=== PATIENT | female | born 1995 | race Caucasian/White ===

== ENCOUNTER 2021-04-30 19:42 | Emergency (ER) | payer OTHER, SELFPAY ==
--- NOTE | 2021-04-30 19:50 | ED.GENADULT ---
HPI - General Adult General Chief complaint: Wound/Laceration Stated complaint: tetnus shot Time Seen by Provider: 04/30/21 19:49 Source: patient and family Mode of arrival: ambulatory Limitations: no limitations History of Present Illness HPI narrative: 26-year-old female patient presents to the [facility] with complaints of a puncture wound with a needle to the right index finger. Patient states she was at an antique shop trying on some pants when there was a straight needle that was holding the tag onto the pants that punctured her PIP joint. Patient states it was bleeding. Patient states she is unsure of how clean the needle was and therefore is requesting a tetanus shot. Related Data Home Medications Medication Instructions Recorded Confirmed spironolactone 100 mg PO DAILY 04/30/21 04/30/21 Allergies Allergy/AdvReac Type Severity Reaction Status Date / Time No Known Allergies Allergy Verified 04/30/21 19:59 Review of Systems Review of Systems: CONSTITUTIONAL: Denies fever, chills, or sweats. EYES: Denies visual changes, redness, or discharge. ENT: Denies rhinorrhea, congestion, sore throat, or otalgia. CARDIOVASCULAR: Denies chest pain, palpitations, or edema. RESPIRATORY: Denies cough or dyspnea. GASTROINTESTINAL: Denies abdominal pain, nausea, vomiting, or diarrhea. GENITOURINARY: Denies dysuria or hematuria. SKIN: Denies rash or itching. Positive puncture wound to right index finger MUSCULOSKELETAL: Denies back pain, joint pain, or myalgia. NEUROLOGIC: Denies headache, numbness, or weakness. PSYCHIATRIC: Denies anxiety or depression. PMFSH Comments At the time of my signature I agree with nursing past medical history, surgical, social, and family history. There is no relevant family history pertinent to the presenting complaint. Exam Narrative: GENERAL: Well-appearing, well-nourished, and in no acute distress. HEAD: Normocephalic, atraumatic. EYES: PERRLA and EOMI. ENT: Nares clear, no rhinorrhea or epistaxis. Mucous membranes moist. NECK: Supple. No lymphadenopathy CHEST: Clear to auscultation. No respiratory distress. HEART: Regular rate and rhythm. No murmur heard. Normal peripheral pulses. ABDOMEN: Soft, nontender, nondistended, normal active bowel sounds. EXTREMITIES: Normal range of motion. No edema. SKIN: Warm, dry, no rash. Patient has some bruising noted around the PIP joints on the index finger with some swelling noted around the joint. NEURO: No focal deficits. Alert and oriented x3. Course Vital Signs Vital signs: Vital Signs Temperature 37.1 C 04/30/21 19:54 Pulse Rate 98 04/30/21 19:54 Respiratory Rate 16 04/30/21 19:54 Blood Pressure 138/63 04/30/21 19:54 Pulse Oximetry 100 04/30/21 19:54 Temperature 37.1 C 04/30/21 19:54 Pulse Rate 98 04/30/21 19:54 Respiratory Rate 16 04/30/21 19:54 Blood Pressure 138/63 04/30/21 19:54 Pulse Oximetry 100 04/30/21 19:54 Vital signs reviewed Medical Decision Making Differential Diagnosis Differential Diagnosis: Differential diagnosis: Abscess, cellulitis, hidradenitis, laceration, puncture wound. Discussed with patient that given the fact that she was punctured with an unknown needle I think that we should go ahead and update her tetanus shot today as well as put her on some antibiotics since it did puncture her in the joint area prophylactically to decrease risk of infection. Patient is in agreement with this plan of care denies any other questions or concerns. Vital Signs Vital Signs: Vital Signs Temperature 37.1 C 04/30/21 19:54 Pulse Rate 98 04/30/21 19:54 Respiratory Rate 16 04/30/21 19:54 Blood Pressure 138/63 04/30/21 19:54 Pulse Oximetry 100 04/30/21 19:54 Temperature 37.1 C 04/30/21 19:54 Pulse Rate 98 04/30/21 19:54 Respiratory Rate 16 04/30/21 19:54 Blood Pressure 138/63 04/30/21 19:54 Pulse Oximetry 100 04/30/21 19:54 Critical Care Time Critical Car
[2021-04-30 19:54] VITALS: BP 138/63; PULSE 98; RESP 16; TEMP 37.1; O2SAT 100
[2021-04-30] MEDS: TETANUS,DIPHTHERIA,AC PERTUSSIS ADULT (0.5 ML) BOOSTRIX IM (19:56)
== END 2021-04-30 20:20 | disposition home or self-care (01) ==
PROVIDERS: Emergency Provider Nurse Practitioner Family
DX: S61.230A Puncture wound without foreign body of right index finger without damage to nail, initial encounter (principal); Z23 Encounter for immunization; W45.8XXA Other foreign body or object entering through skin, initial encounter; Y92.513 Shop (commercial) as the place of occurrence of the external cause
CPT/HCPCS: 90471; 90715; 99213; G0463